=== PATIENT | female | born 2000 | race Caucasian/White ===

== ENCOUNTER 2018-12-02 17:19 | Emergency (ER) | payer MEDICAID ==
[~2018-12-02] VITALS: Ht 160 cm; Wt 72.6 kg
--- NOTE | 2018-12-02 17:25 | NUR ---
Pt placed in bed 5, EKG is being performed
[2018-12-02 17:29] VITALS: BP_SYST 130
--- NOTE | 2018-12-02 17:30 | NUR ---
Pt AAOx4 ambulated into ED c/o L upper chest pain x 1 hour prior to arrival and also reports difficulty breathing upon waking this morning. Pt denies N/V/D/fever/back pain. No other injuries/complaints per pt/noted. Will continue to monitor.
--- NOTE | 2018-12-02 17:45 | NUR ---
ER Dr. Trevino at bedside examining patient.
--- NOTE | 2018-12-02 18:32 | NUR ---
Pt reports she felt a "little bit of chest pain" returning, but the pain is resolved.
[2018-12-02 18:51] VITALS: BP_SYST 113
--- NOTE | 2018-12-02 18:51 | NUR ---
Patient given written and verbal discharge instructions and verbalizes understanding. ER MD Trevino discussed with patient the results and treatment provided. Patient in stable condition. ID arm band removed. No Rx given. Patient educated on pain management and to follow up with PMD. Pain Scale 0. Opportunity for questions provided and answered. Medication side effect fact sheet provided.
== END 2018-12-02 18:51 | disposition home or self-care (01) ==
LOC: SED 17:19
DX: R00.2 Palpitations (principal); R11.0 Nausea; R03.0 Elevated blood-pressure reading, without diagnosis of hypertension
CPT/HCPCS: 93005; 99281

== ENCOUNTER 2019-01-12 09:36 | Emergency (ER) | payer MEDICAID ==
[~2019-01-12] VITALS: Ht 157.5 cm; Wt 77.1 kg
[2019-01-12 09:36] VITALS: BP_SYST 117
--- NOTE | 2019-01-12 09:36 | NUR ---
BROUGHT BACK TO BED #6 AND TRIAGED. REPORT GIVEN TO HILARY
--- NOTE | 2019-01-12 09:45 | NUR ---
Patient presented to ER with c/o emesis and cough. Patient alert and oriented, ambulatory, afebrile, respirations equal bilat, pain 3/10. Patient states she has had sore throat and headache x2 weeks; today patient had emesis episode x1 with bloody nose and cough.
--- NOTE | 2019-01-12 09:45 | NUR ---
IVETH Lay at bedside examining patient.
[2019-01-12] MEDS ORDERED: ONDANSETRON 4 MG ODT TAB PO ONE (10:00)
--- NOTE | 2019-01-12 10:00 | NUR ---
IVETH Stephenson at bedside examining patient.
--- NOTE | 2019-01-12 10:50 | NUR ---
TAKEN TO RADIOLOGY AMBULATORY
--- NOTE | 2019-01-12 10:54 | NUR ---
RETURNED FROM RADIOLOGY, PLACED BACK TO BED #6 SAFELY
[2019-01-12 11:25] VITALS: BP_SYST 118
--- NOTE | 2019-01-12 11:25 | NUR ---
Patient given written and verbal discharge instructions and verbalizes understanding. ER MD discussed with patient the results and treatment provided. Patient in stable condition. ID arm band removed. Rx of tesselon given. Patient educated on pain management and to follow up with PMD. Pain Scale 0/10. Opportunity for questions provided and answered. Medication side effect fact sheet provided.
== END 2019-01-12 11:25 | disposition home or self-care (01) ==
LOC: SED 09:36
DX: B34.9 Viral infection, unspecified (principal); R05 Cough
CPT/HCPCS: 71045; 99283; Q0162

== ENCOUNTER 2022-05-08 16:17 | Emergency (ER) | payer MEDICAID ==
[~2022-05-08] VITALS: Ht 157.5 cm; Wt 86.2 kg
[2022-05-08 16:20] VITALS: BP_SYST 109
--- NOTE | 2022-05-08 16:25 | NUR ---
Patient triaged and placed in waiting room. VSS and patient appears in no acute distress at this time. Accompanied by SELF, awaiting available bed, and MD notified of need for MSE.
--- NOTE | 2022-05-08 16:30 | NUR ---
PT STATES SHE HAS HAD RIGHT EAR INFECTION FOR LAST 3 MONTHS, STATES SHE HAS TRIED ANTIBIOTIC/EAR DROPS. STILL WITH PAIN. STATES SHE CAN NOT GET INTO AN ENT UNTIL SHE GETS A REFERRAL FROM PRIMARY DR, CAN NOT GET AN APPT WITH PMD TILL END
--- NOTE | 2022-05-08 17:35 | NUR ---
DR FLORES OUT TO TRIAGE ROOM FOR EVALUATION
[2022-05-08] MEDS ORDERED: NAPR-688 PO (17:59)
[2022-05-08] MEDS ORDERED: CIPR7.5D OT (17:59)
--- NOTE | 2022-05-08 18:01 | NUR ---
Patient given written and verbal discharge instructions and verbalizes understanding. ER MD discussed with patient the results and treatment provided. Patient in stable condition. ID arm band removed. Rx of CIPROFLOXACIN OTIC, NAPROXEN given. Patient educated on pain management and to follow up with PMD. Pain Scale 0/10. Opportunity for questions provided and answered. Medication side effect fact sheet provided.
== END 2022-05-08 18:01 | disposition home or self-care (01) ==
LOC: SED 16:17
DX: H60.91 Unspecified otitis externa, right ear (principal); H92.01 Otalgia, right ear; Z79.899 Other long term (current) drug therapy
CPT/HCPCS: 99283